=== PATIENT | male | born 1985 | race Hispanic/Latino ===

== ENCOUNTER 2017-02-26 19:01 | Emergency (ER) | payer SELFPAY ==
[~2017-02-26] VITALS: Ht 185.4 cm; Wt 102.1 kg
[2017-02-26] MEDS ORDERED: NS IV 1000 ML 1,000 ML ONE (19:30)
[2017-02-26] MEDS ORDERED: LORazepam INJ 2 MG/ML (ATIVAN) VIAL ONE (19:30)
--- NOTE | 2017-02-26 19:39 | ED General ---
General Stated Complaint: POSSIBLE FOOD POISONING Source of Information: Patient Exam Limitations: No Limitations History of Present Illness Time Seen by Provider: 19:37 Initial Comments To ER with reports of anxiety after eating some mushrooms just prior to arrival to get high. States he feels shakiness in his head. He ate these at 5 p.m. Severity: Moderate Allergies and Home Medications Allergies Coded Allergies: No Known Drug Allergies (Unverified , 07/15/16) Home Medications No Active Prescriptions or Reported Meds Constitutional: see HPI EENTM: see HPI Respiratory: no symptoms reported Cardiovascular: no symptoms reported Genitourinary: no symptoms reported Musculoskeletal: no symptoms reported Skin: no symptoms reported Psychiatric/Neurological: No Symptoms Reported Hematologic/Lymphatic: No Symptoms Reported Past [id number]-Tgmskg Hx Patient Social History Type Used: Cigarettes Recent Foreign Travel: No Contact w/Someone Who Travel: No Recent Hopitalizations: No Seasonal Allergies Seasonal Allergies: No Surgeries HX Surgeries: No Respiratory Hx Respiratory Disorders: No Cardiovascular Hx Cardiac Disorders: No Neurological Hx Neurological Disorders: No Reproductive System Hx Reproductive Disorders: No Genitourinary Hx Genitourinary Disorders: No Gastrointestinal Hx Gastrointestinal Disorders: No Musculoskeletal Hx Musculoskeletal Disorders: No Endocrine Hx Endocrine Disorders: No HEENT HX ENT Disorders: No Cancer Hx Cancer: No Psychosocial Hx Psychiatric Problems: No Integumentary HX Skin/Integumentary Disorder: No Blood Transfusions Hx Blood Disorders: No Physical Exam Vital Signs Vital Sign - Last 12Hours 02/26/17 19:26 Temp 99.9 Pulse 93 Resp 24 B/P (MAP) 160/103 Pulse Ox 97 O2 Delivery Room Air Capillary Refill : General Appearance: No Apparent Distress, WD/WN, Anxious Eyes: Bilateral Eye Normal Inspection, Bilateral Eye PERRL HEENT: PERRL/EOMI, TMs Normal Neck: Full Range of Motion, Normal Inspection Respiratory: No Accessory Muscle Use, No Respiratory Distress Cardiovascular: Regular Rate, Rhythm, Normal Peripheral Pulses Gastrointestinal: Normal Bowel Sounds (1), Non Tender, Soft Extremity: Normal Capillary Refill Neurologic/Psychiatric: Alert, Oriented x3, No Motor/Sensory Deficits Skin: Normal Color, Warm/Dry Progress/Results/Core Measures Results/Orders Lab Results Laboratory Tests Test 02/26/17 19:38 02/26/17 20:12 Range/Units White Blood Count 9.1 4.3-11.0 10^3/uL Red Blood Count 5.74 4.35-5.85 10^6/uL Hemoglobin 17.4 13.3-17.7 G/DL Hematocrit 48 40-54 % Mean Corpuscular Volume 83 80-99 FL Mean Corpuscular Hemoglobin 30 25-34 PG Mean Corpuscular Hemoglobin Concent 36 32-36 G/DL Red Cell Distribution Width 12.4 10.0-14.5 % Platelet Count 168 130-400 10^3/uL Mean Platelet Volume 12.1 H 7.4-10.4 FL Neutrophils (%) (Auto) 70 42-75 % Lymphocytes (%) (Auto) 20 12-44 % Monocytes (%) (Auto) 8 0-12 % Eosinophils (%) (Auto) 1 0-10 % Basophils (%) (Auto) 0 0-10 % Neutrophils # (Auto) 6.4 1.8-7.8 X 10^3 Lymphocytes # (Auto) 1.8 1.0-4.0 X 10^3 Monocytes # (Auto) 0.8 0.0-1.0 X 10^3 Eosinophils # (Auto) 0.1 0.0-0.3 10^3/uL Basophils # (Auto) 0.0 0.0-0.1 10^3/uL Sodium Level 141 135-145 MMOL/L Potassium Level 3.2 L 3.6-5.0 MMOL/L Chloride Level 108 H 98-107 MMOL/L Carbon Dioxide Level 15 L 21-32 MMOL/L Anion Gap 18 H 5-14 MMOL/L Blood Urea Nitrogen 14 7-18 MG/DL Creatinine 1.10 0.60-1.30 MG/DL Estimat Glomerular Filtration Rate > 60 BUN/Creatinine Ratio 13 Glucose Level 116 H 70-105 MG/DL Calcium Level 10.1 8.5-10.1 MG/DL Total Bilirubin 0.9 0.1-1.0 MG/DL Aspartate Amino Transf (AST/SGOT) 30 5-34 U/L Alanine Aminotransferase (ALT/SGPT) 46 0-55 U/L Alkaline Phosphatase 72 40-136 U/L Total Protein 7.7 6.4-8.2 G/DL Albumin 4.9 H 3.2-4.5 G/DL Salicylates Level < 5.0 L 5.0-20.0 MG/DL Acetaminophen Level < 10 L 10-30 UG/ML Serum Alcohol < 10 <10 MG/DL Urine Color YELLOW Urine Clarity CLEAR Urine pH 7 5-9 Urine Specific [place] 1.010 L 1.016-1.022 Urine Protein NEGATIVE NEGATIVE Urine Glucose (UA) NEGATIVE NEGATIVE Urine Ketones NEGATIVE NEGATIVE Urine Nitrite NEGATIVE NEGATIVE Urine Bilirubin NEGATIVE NEGATIVE Urine Urobilinogen NORMAL NORMAL MG/DL Urine Leukocyte Esterase NEGATIVE NEGATIVE Urine RBC (Auto) NEGATIVE NEGATIVE Urine RBC NONE /HPF Urine WBC NONE /HPF Urine Squamous Epithelial Cells RARE /HPF Urine Crystals NONE /LPF Urine Bacteria NONE /HPF Urine Casts NONE /LPF Urine Mucus NEGATIVE /LPF Urine Culture Indicated NO Urine Opiates Screen NEGATIVE NEGATIVE Urine Oxycodone Screen NEGATIVE NEGATIVE Urine Methadone Screen NEGATIVE NEGATIVE Urine Propoxyphene Screen NEGATIVE NEGATIVE Urine Barbiturates Screen NEGATIVE NEGATIVE Ur Tricyclic Antidepressants Screen NEGATIVE NEGATIVE Urine Phencyclidine Screen NEGATIVE NEGATIVE Urine Amphetamines Screen NEGATIVE NEGATIVE Urine Methamphetamines Screen NEGATIVE NEGATIVE Urine Benzodiazepines Screen NEGATIVE NEGATIVE Urine Cocaine Screen NEGATIVE NEGATIVE Urine Cannabinoids Screen POSITIVE H NEGATIVE My Orders Orders - MONTEZ SEALS APRN Cbc With Automated Diff (02/26/17 19:34) Comprehensive Metabolic Panel (02/26/17 19:34) Ua Culture If Indicated (02/26/17 19:34) Drug Screen Stat (Urine) (02/26/17 19:34) Alcohol (02/26/17 19:34) Salicylate (02/26/17 19:34) Acetaminophen (02/26/17 19:34) Ns Iv 1000 Ml (Sodium Chloride 0.9%) (02/26/17 19:45) Lorazepam Injection (Ativan Injection) (02/26/17 19:45) Medications Given in ED Current Medications Medications Dose Ordered Sig/Yamilet Route Start Time Stop Time Status Last Admin Dose Admin Lorazepam 1-2mg iv ONCE ONCE IVP 02/26/17 19:45 02/26/17 19:46 DC 02/26/17 19:40 2 MG Vital Signs/I&O Vital Sign - Last 12Hours 02/26/17 19:26 Temp 99.9 Pulse 93 Resp 24 B/P (MAP) 160/103 Pulse Ox 97 O2 Delivery Room Air Departure Communication Progress Notes 2041-vitals are improved, blood pressure 143/70, heart rate 91, respiratory rate 22. We'll discharge to home with a take-home pack of Ativan. Impression Impression: Primary Impression: Drug abuse Disposition: HOME, SELF-CARE Condition: Stable Departure-Patient Inst. Decision time for Depature: 20:42 Referrals: NO,LOCAL PHYSICIAN (PCP) Primary Care Physician Patient Instructions: ALCOHOL AND SUBSTANCE ABUSE Add. Discharge Instructions: 1. No more mushrooms Scripts No Active Prescriptions or Reported Meds MONTEZ SEALS APRN Feb 26, 2017 19:38
[2017-02-26] MEDS: NS IV 1000 ML 1,000 ML IV SCH (19:40)
[2017-02-26] MEDS: LORazepam INJ 2 MG/ML (ATIVAN) VIAL IVP ONE (19:40)
[2017-02-26 19:48] LABS: BASOPHILS % (AUTO) 0 % (0-10); EOSINOPHILS # (AUTO) 0.1 10^3/uL (0.0-0.3); EOSINOPHILS % (AUTO) 1 % (0-10); LYMPHOCYTES # (AUTO) 1.8 X 10^3 (1.0-4.0); LYMPHOCYTES % (AUTO) 20 % (12-44); MEAN CORPUSCULAR HEMOGLOBIN 30 PG (25-34); MEAN CORPUSCULAR HGB CONC 36 G/DL (32-36); MEAN CORPUSCULAR VOLUME 83 FL (80-99); MEAN PLATELET VOLUME 12.1 FL (7.4-10.4); MONOCYTES # (AUTO) 0.8 X 10^3 (0.0-1.0); MONOCYTES % (AUTO) 8 % (0-12); NEUTROPHILS # (AUTO) 6.4 X 10^3 (1.8-7.8); NEUTROPHILS % (AUTO) 70 % (42-75); PLATELET COUNT 168 10^3/uL (130-400); RED BLOOD COUNT 5.74 10^6/uL (4.35-5.85); RED CELL DISTRIBUTION WIDTH 12.4 % (10.0-14.5); WHITE BLOOD COUNT 9.1 10^3/uL (4.3-11.0)
[2017-02-26 20:07] LABS: ALANINE AMINOTRANSFERASE 46 U/L (0-55); ALBUMIN 4.9 G/DL (3.2-4.5); ANION GAP 18 MMOL/L (5-14); ASPARTATE AMINO TRANSFERASE 30 U/L (5-34); BILIRUBIN,TOTAL 0.9 MG/DL (0.1-1.0); BLOOD UREA NITROGEN 14 MG/DL (7-18); BUN/CREATININE RATIO 13; CALCIUM 10.1 MG/DL (8.5-10.1); CARBON DIOXIDE 15 MMOL/L (21-32); CHLORIDE 108 MMOL/L (98-107); GFR ESTIMATED > 60; GLUCOSE 116 MG/DL (70-105); POTASSIUM 3.2 MMOL/L (3.6-5.0); SALICYLATE < 5.0 MG/DL (5.0-20.0); SODIUM 141 MMOL/L (135-145); TOTAL PROTEIN 7.7 G/DL (6.4-8.2)
[2017-02-26 20:11] LABS: ACETAMINOPHEN < 10 UG/ML (10-30); ALCOHOL < 10 MG/DL (<10)
[2017-02-26 20:21] LABS: BILIRUBIN,URINE NEGATIVE (NEGATIVE); KETONES,URINE NEGATIVE (NEGATIVE); LEUKOCYTE ESTERASE ,URINE NEGATIVE (NEGATIVE); NITRITE,URINE NEGATIVE (NEGATIVE); PH,URINE 7 (5-9); PROTEIN,URINE NEGATIVE (NEGATIVE); UROBILINOGEN,URINE NORMAL (NORMAL)
[2017-02-26 20:27] LABS: SQUAMOUS EPITHELIAL CELL,UR RARE /HPF
[2017-02-26 20:48] VITALS: BP 143/73
[2017-02-26] MEDS: RX-LORAZEPAM (ATIVAN) 0.5 MG TAB PPK#4 PO STA (20:50)
== END 2017-02-26 20:48 | disposition home or self-care (01) ==
LOC: EDUNIT# 19:01 → ER 19:02
DX: F19.10 Other psychoactive substance abuse, uncomplicated (principal); F12.90 Cannabis use, unspecified, uncomplicated; F41.9 Anxiety disorder, unspecified
CPT/HCPCS: 36415; 80053; 80306; 80320; 80329; 81000; 85025

== ENCOUNTER 2018-03-24 14:56 | Emergency (ER) | payer SELFPAY ==
[~2018-03-24] VITALS: Ht 185.4 cm; Wt 122.5 kg
[2018-03-24] MEDS ORDERED: KETOROLAC 60 MG/2 ML VIAL IM ONE (15:15)
[2018-03-24] MEDS ORDERED: ORPHENADRINE 60 MG/2 ML (NORFLEX) AMP IM ONE (15:15)
--- NOTE | 2018-03-24 15:25 | ED Back Pain ---
General Stated Complaint: LOWER BACK,PELVIC PAIN Source of Information: Patient Exam Limitations: No Limitations History of Present Illness Date Seen by Provider: Mar 24, 2018 Time Seen by Provider: 15:21 Initial Comments Patient is a 32-year-old male who presents to the emergency room with complaints of low back pain after moving a desk 2 weeks ago. He reports that he has been to [facility] chiropractor here in town without relief. He reports that he is tried aspirin for pain and has had no relief. He reports not having a local physician. Location: Lumbar Spine Timing/Duration: Other (2 weeks) Severity: Mild Pain/Injury Location: Back Method of Injury: Other (lifting) Modifying Factors: Worse With Movement Associated Symptoms: No tingling in legs/feet; lower back pain; No loss of bladder control, No loss of bowel control Allergies and Home Medications Allergies Coded Allergies: No Known Drug Allergies (Unverified , 07/15/16) Home Medications No Active Prescriptions or Reported Meds Patient Home Medication List Home Medication List Reviewed: Yes Constitutional: see HPI; No fever, No malaise EENTM: see HPI; No no symptoms reported, No ear discharge Respiratory: see HPI; No cough, No dyspnea on exertion Cardiovascular: see HPI; No chest pain, No edema Gastrointestinal: see HPI; No abdominal pain, No constipation Genitourinary: see HPI; No decreased output, No discharge Musculoskeletal: see HPI, back pain; No gout, No joint pain; muscle pain, muscle stiffness, muscle cramps Skin: see HPI; No change in color, No change in hair/nails Psychiatric/Neurological: See HPI; Denies Anxiety, Denies Depressed All Other Systems Reviewed Negative Unless Noted: Yes Past Zsnsnyi-Avrwug-Uxarzw Hx Past Med/Social Hx: Reviewed Nursing Past Med/Soc Hx Patient Social History Drug of Choice: MARIJUANA, MUSHROOMS Type Used: Cigarettes Former Smoker, Quit: Jul 28, 2016 2nd Hand Smoke Exposure: Yes Recent Foreign Travel: No Contact w/Someone Who Travel: No Recent Hopitalizations: No Seasonal Allergies Seasonal Allergies: No Past Medical History Surgeries: No Respiratory: No Cardiac: No Neurological: No Reproductive Disorders: No Gastrointestinal: No Musculoskeletal: No Endocrine: No Cancer: No Psychosocial: No Integumentary: No Blood Disorders: No Family Medical History Reviewed Nursing Family Hx Physical Exam Vital Signs Vital Signs - First Documented 03/24/18 15:15 Temp 97.5 Pulse 92 Resp 20 B/P (MAP) 131/112 (118) Pulse Ox 95 O2 Delivery Room Air Capillary Refill : General Appearance: No Apparent Distress, WD/WN HEENT: TMs Normal, Normal ENT Inspection, Pharynx Normal Neck: Full Range of Motion, Normal Inspection, Non Tender, Supple Cardiovascular: Regular Rate, Rhythm, No Edema, No Gallop, No JVD, No Murmur, Normal Peripheral Pulses Respiratory: Chest Non Tender, Lungs Clear, Normal Breath Sounds, No Accessory Muscle Use, No Respiratory Distress Gastrointestinal: Normal Bowel Sounds, Non Tender, Soft Back: Normal Inspection, No CVA Tenderness, No Vertebral Tenderness ( tenderness of the iliosacral joint. He reports some numbness going down his right leg to about his knee level. He denies saddle paresthesia, loss of bowel or bladder.) Extremity: Normal Capillary Refill, Normal Inspection, Normal Range of Motion, Non Tender Neurologic/Psychiatric: Alert, Oriented x3, Normal Mood/Affect Skin: Normal Color, Warm/Dry Lymphatic: No Adenopathy Progress/Results/Core Measures Results/Orders My Orders Orders - DARCI PETERSON Ketorolac Injection (Toradol Injection) (03/24/18 15:15) Orphenadrine Injection (Norflex Injectio (03/24/18 15:15) Morphine Injection (Morphine Injection (03/24/18 16:15) Medications Given in ED Current Medications Medications Dose Ordered Sig/Yamilet Route Start Time Stop Time Status Last Admin Dose Admin Ketorolac Tromethamine 60 mg ONCE ONCE IM 03/24/18 15:15 03/24/18 15:16 DC 03/24/18 15:28 60 MG Morphine Sulfate 10 mg ONCE ONCE IJ 03/24/18 16:15 03/24/18 16:16 DC 03/24/18 16:28 10 MG Orphenadrine Citrate 60 mg ONCE ONCE IM 03/24/18 15:15 03/24/18 15:16 DC 03/24/18 15:28 60 MG Vital Signs/I&O 03/24/18 03/24/18 03/24/18 15:15 16:28 16:45 Temp 97.5 97.5 97.5 Pulse 92 92 Resp 20 20 B/P (MAP) 131/112 (118) 135/98 (118) Pulse Ox 95 95 O2 Delivery Room Air Progress Progress Note : Time: 16:39 Progress Note The patient reports that he is going to call and get established with [facility] for a follow-up. He agrees with plans of discharge. He was sent with a prescription for prednisone 40 mg daily for 7 days and cyclobenzaprine 5 mg he can take every 8 hours for 7 days.. Departure Impression Primary Impression: Back pain Qualified Codes: M54.41 - Lumbago with sciatica, right side Disposition: HOME, SELF-CARE Condition: Stable/Unchanged Departure-Patient Inst. Decision time for Depature: 16:20 Referrals: NO,LOCAL PHYSICIAN (PCP) Primary Care Physician [facility] [place] Patient Instructions: Low Back Pain (DC) Add. Discharge Instructions: Take medications as directed. Call tomorrow morning to get established with [facility]. They will be able to help treat back pain and outpatient setting. You may use ibuprofen and acetaminophen as directed by the bottle for additional pain relief. The muscle relaxers may make you tired to use with caution. Return back to the emergency room for increased pain, numbness or tingling, loss of bowel or bladder. Scripts No Active Prescriptions or Reported Meds DARCI PETERSON Mar 24, 2018 15:25
[2018-03-24] MEDS ORDERED: morphine INJ 10 MG/ML 1ML (SYR OR VIAL) IJ ONE (16:15)
[2018-03-24 16:45] VITALS: BP 135/98
== END 2018-03-24 16:45 | disposition home or self-care (01) ==
LOC: EDUNIT# 14:56 → ER 14:58
DX: M54.5 Low back pain (principal); Z87.891 Personal history of nicotine dependence
CPT/HCPCS: 96372; 99284